=== PATIENT | female | born 1965 | race Caucasian/White ===

== ENCOUNTER 2016-10-13 19:55 | Outpatient (CLI) | payer OTHER | END 2016-10-14 06:25 | disposition home or self-care (01) | LOC: SLEEP 19:55 | PROVIDERS: ATTEND Nurse Practitioner Family | DX: G47.10 Hypersomnia, unspecified (principal); R06.83 Snoring | CPT/HCPCS: 95810 ==

== ENCOUNTER → 2016-11-20 | Outpatient (CLI) | payer OTHER ==
--- NOTE | 2016-11-23 18:02 | Diagnostic Imaging Report ---
Bilateral screening mammogram. The current study was also evaluated with a Computer Aided Detection (CAD) system. INDICATION: Screening. No current complaints stated on the questionnaire. COMPARISON: 10/18/15. FINDINGS: The breasts are composed of heterogeneously dense parenchyma which may decrease mammographic sensitivity. There is no mass, architectural distortion or suspicious cluster of calcification. Allowing for technique and positional differences, no suspicious change is seen. IMPRESSION: Dense breasts with no definite change. ACR BI-RADS Category 2: Benign findings. Result letter will be mailed to the patient. Note: At least 10% of breast cancer is not imaged by mammography. Dictated by: Dictated on workstation # [id number]
== END ==
LOC: RAD 09:15
PROVIDERS: ATTEND Nurse Practitioner
DX: Z12.31 Encounter for screening mammogram for malignant neoplasm of breast (principal); R92.2 Inconclusive mammogram
CPT/HCPCS: 77067

== ENCOUNTER → 2017-12-14 | Outpatient (CLI) | payer OTHER ==
--- NOTE | 2017-12-14 19:11 | Diagnostic Imaging Report ---
INDICATION: Routine screening. COMPARISON: Comparison is made with prior mammograms from 11/20/2016 and 10/18/2015. TECHNIQUE: 2D and 3D bilateral screening mammography was performed with computer-aided detection (CAD) system. FINDINGS: Both breasts are heterogeneously dense, limiting the sensitivity of mammography. The overall parenchymal pattern appears stable. There are benign calcifications present. No mass or malignant appearing microcalcifications are seen. The axillae are unremarkable. IMPRESSION: No mammographic features suspicious for malignancy are identified. ACR BI-RADS Category 2: Benign findings. Result letter will be mailed to the patient. Note: At least 10% of breast cancer is not imaged by mammography. Dictated by: Dictated on workstation # [id number]
== END ==
LOC: RAD 12:49
PROVIDERS: ATTEND Nurse Practitioner
DX: Z12.31 Encounter for screening mammogram for malignant neoplasm of breast (principal)
CPT/HCPCS: 77067

== ENCOUNTER → 2019-01-24 | Outpatient (CLI) | payer OTHER ==
--- NOTE | 2019-01-25 18:05 | Diagnostic Imaging Report ---
EXAMINATION: Digital mammogram bilateral screening. INDICATION: Screening. The current study was also evaluated with a Computer Aided Detection (CAD) system. 3-D tomosynthesis was also performed and reviewed. COMPARISON: This study was compared to the prior exams of 12/14/2017, 11/20/2016, and 10/18/2015. At this time, there are no current complaints. FINDINGS: The fibroglandular tissue in both breasts is heterogeneously dense. This does limit the sensitivity of this exam. Overall, there does not appear to have been any significant change when compared to the prior study. No primary or secondary sign of malignancy is noted. 3D tomographic images fail to show any sign of malignancy. IMPRESSION: There is no radiographic evidence for malignancy. ACR BI-RADS Category 1: Negative. Result letter will be mailed to the patient. Note: At least 10% of breast cancer is not imaged by mammography. Dictated by: Dictated on workstation # [id number]
== END ==
LOC: RAD 15:36
PROVIDERS: ATTEND Obstetrics & Gynecology
DX: Z12.31 Encounter for screening mammogram for malignant neoplasm of breast (principal)
CPT/HCPCS: 77067

== ENCOUNTER → 2020-01-26 | Outpatient (CLI) | payer OTHER ==
--- NOTE | 2020-01-29 09:01 | Diagnostic Imaging Report ---
INDICATION: Routine screening. COMPARISON: 01/24/2019 and 12/14/2017. TECHNIQUE: 2D and 3D bilateral screening mammography was performed with CAD. FINDINGS: Both breasts remain heterogeneously dense, limiting the sensitivity of mammography. The parenchymal pattern is stable. No mass or malignant appearing microcalcifications are seen. The axillae are unremarkable. IMPRESSION: No mammographic features suspicious for malignancy are identified. ACR BI-RADS Category 1: Negative. Result letter will be mailed to the patient. Note: At least 10% of breast cancer is not imaged by mammography. Dictated by: Dictated on workstation # [id number]
== END ==
LOC: RAD 15:27
PROVIDERS: ATTEND Obstetrics & Gynecology
DX: Z12.31 Encounter for screening mammogram for malignant neoplasm of breast (principal)
CPT/HCPCS: 77063; 77067

== ENCOUNTER → 2021-07-15 | Outpatient (CLI) | payer OTHER ==
--- NOTE | 2021-07-15 16:26 | Diagnostic Imaging Report ---
INDICATION: Routine screening. COMPARISON: 01/26/2020 and 01/24/2019. TECHNIQUE: 2D and 3D bilateral screening mammography was performed with CAD. FINDINGS: Both breasts are heterogeneously dense, limiting the sensitivity of mammography. The parenchymal pattern is stable. No mass or malignant-appearing microcalcifications are seen. The axillae are unremarkable. IMPRESSION: No mammographic features suspicious for malignancy are identified. ACR BI-RADS Category 1: Negative. Result letter will be mailed to the patient. Note: At least 10% of breast cancer is not imaged by mammography. Dictated by: Dictated on workstation # [id number]
== END ==
LOC: RAD 15:45
PROVIDERS: ATTEND Nurse Practitioner Family
DX: Z12.31 Encounter for screening mammogram for malignant neoplasm of breast (principal)
CPT/HCPCS: 77063; 77067

== ENCOUNTER 2021-08-01 05:31 | Outpatient (RCR) | payer OTHER ==
[~2021-08-01] VITALS: Ht 162.6 cm; Wt 84.8 kg
[~2021-08-01 05:31] MED LIST: ATOR20TA66 PO; CELE-63 PO; CETI10TA17 PO; DULO30CA49 PO; DULO60CA59 PO; EZET10TA49 PO; FERR325T24 PO; LACT1CAP57 PO; VALA500T4 PO
[2021-08-05] MEDS ORDERED: PANT40TA2 PO (09:18)
== END 2021-08-04 11:00 | disposition home or self-care (01) ==
LOC: PREOP 05:31
PROVIDERS: ATTEND Surgery
DX: Z01.812 Encounter for preprocedural laboratory examination (principal); Z12.11 Encounter for screening for malignant neoplasm of colon; K21.9 Gastro-esophageal reflux disease without esophagitis; Z20.822 Contact with and (suspected) exposure to COVID-19
CPT/HCPCS: 87635

== ENCOUNTER 2021-08-05 06:49 | Day surgery (SDC) | payer OTHER ==
[~2021-08-05] VITALS: Ht 163 cm; Wt 85.0 kg
[2021-08-05] MEDS ORDERED: LACTATED RINGERS 1,000 ML IV STA (07:04)
[2021-08-05] MEDS ORDERED: LACTATED RINGERS 1,000 ML IV ONE (07:10)
[2021-08-05] MEDS ORDERED: PROPOFOL INJECTION 50 ML IV ONE ×2 (07:15→08:50)
[2021-08-05] MEDS ORDERED: MIDAZOLAM 2 MG/2 ML (VERSED) VIAL ONE (07:15)
[2021-08-05 07:25] VITALS: BP 117/74
--- NOTE | 2021-08-05 08:01 | Progress Note-Pre Operative ---
Pre-Operative Progress Note H&P Reviewed The H&P was reviewed, patient examined and no changes noted. Date Seen by Provider: Aug 05, 2021 Time Seen by Provider: 08:00 Date H&P Reviewed: Aug 05, 2021 Time H&P Reviewed: 08:00 Pre-Operative Diagnosis: screening colonoscopy, altered bowel function, gerd DARRYL HER DO Aug 05, 2021 08:00
[2021-08-05] MEDS ORDERED: PANT40TA2 PO (09:18)
--- NOTE | 2021-08-05 09:19 | Discharge Inst-Simple/Standard ---
Discharge Inst-Standard Discharge Medications New, Converted or Re-Newed RX: Transmitted to Pharmacy Patient Instructions/Follow Up Plan of Care/Instructions/FU: 2 weeks Stephanie Activity as Tolerated: Yes Discharge Diet: Regular Diet DARRYL HER DO Aug 05, 2021 09:19
[2021-08-05 09:20] VITALS: BP 75/45
--- NOTE | 2021-08-05 09:21 | Progress Note-Post Operative ---
Post-Operative Progess Note Surgeon (s)/Traffic Checker (s) Surgeon DARRYL HER DO Traffic Checker: na Pre-Operative Diagnosis screening colonoscopy, altered bowel function, gerd Post-Operative Diagnosis hiatal hernia, reflux esophagitis, sigmoid polyp, mucosal change rectum, internal hemorrhoids Procedure & Operative Findings Date of Procedure 08/05/21 Procedure Performed/Findings egd c biopsies, colonoscopy c hot bx polypectomy and cold biopsies rectum Anesthesia Type per customer leader Estimated Blood Loss Estimated blood loss (mL): none Specimens/Packing Specimens Removed antrum, ge, sigmoid polyp, rectum DARRYL HER DO Aug 05, 2021 09:21
[2021-08-05 09:25] VITALS: BP 72/43
[2021-08-05 09:30] VITALS: BP 78/59
[2021-08-05 09:35] VITALS: BP 82/46
[2021-08-05 10:02] VITALS: BP 97/62
--- NOTE | 2021-08-05 13:56 | Anesthesia-General Post-Op ---
MAC Patient Condition Mental Status/LOC: Same as Preop Cardiovascular: Satisfactory Nausea/Vomiting: Absent Respiratory: Satisfactory Pain: Controlled Complications: Absent Post Op Complications Complications None Follow Up Care/Instructions Patient Instructions None needed. Anesthesiology Discharge Order Discharge Order Patient is doing well, no complaints, stable vital signs, no apparent adverse anesthesia problems. No complications reported per nursing. CHRISTIANO CONTEH CRNA Aug 05, 2021 13:56
--- NOTE | 2021-08-05 15:10 | OPERATIVE REPORT ---
DATE OF SERVICE: 08/05/2021 PREOPERATIVE DIAGNOSES: Screening colonoscopy, altered bowel dysfunction, GERD. POSTOPERATIVE DIAGNOSES: Hiatal hernia, reflux esophagitis, sigmoid polyp and mucosal change in rectum, internal hemorrhoids. PROCEDURE: EGD with biopsies, colonoscopy with hot biopsy polypectomy of sigmoid colon and cold biopsies of rectum. SURGEON: Darryl Brown DO ANESTHESIA: Per MACHINERY REPAIR MAINTENANCE SUPERVISOR. ESTIMATED BLOOD LOSS: None. COMPLICATIONS: None. INDICATIONS: The patient is a 56-year-old female with need for screening colonoscopy and has GERD symptoms. She will have occasional altered bowel function. She understands risks and benefits of procedure and wishes to proceed. Consent was signed in the chart. DESCRIPTION OF PROCEDURE: The patient was taken to the endoscopy suite, placed in left lateral recumbent position. Timeout was performed. Scope was inserted in mouth, down the esophagus, stomach and duodenum without difficulty. No polyps, masses or ulcerations in the duodenum. Scope was slowly retracted back to stomach where it was further insufflated. The antrum had normal appearance. Biopsy of the antrum was obtained. Scope was slowly retracted back and retroflexed, some benign appearing polyps were present. A small hiatal hernia was present. Scope was returned to its normal position, slowly withdrawn to distal esophagus with changes of reflux esophagitis. Biopsy of the GE junction was obtained. Scope was slowly retracted back until completely removed. Digital rectal exam was performed. There were no palpable polyps, masses or ulcerations. Some internal hemorrhoids. Scope was inserted in the rectum and advanced all the way to cecum with minimal difficulty. Some debris in the cecum. Lots of irrigation and suction was used. The majority of the cecum was able to be visualized. No pathology within the cecum, ascending, transverse and descending colon. In sigmoid colon, a small polyp was present, which hot biopsy polypectomy was performed. Scope was then continuously retracted back until the rectum where there was slight mucosal change, which cold biopsies were obtained. Scope was retroflexed noting the hemorrhoids. No other pathology. Scope was returned to its normal position, slowly withdrawn until completely removed. The patient tolerated procedure well without any complications, taken to recovery room in stable condition. RECOMMENDATIONS: The patient will need repeat colonoscopy in 5 years. Any issues before that be seen at that time to reevaluate having it performed again. The patient with some reflux esophagitis, hiatal hernia. We will start her on Protonix 40 mg daily and then converted to Pepcid in approximately 2 to 3 months and see how her symptoms do and also await biopsy results. Job ID: [id number] DocumentID: [id number] Dictated Date: 08/05/2021 09:23:55 Charge Master Specialist Date: 08/05/2021 15:10:01 Dictated By: DARRYL BROWN DO
== END 2021-08-05 10:03 | disposition home or self-care (01) ==
LOC: ENDO 06:49
PROVIDERS: ATTEND Surgery
DX: D12.5 Benign neoplasm of sigmoid colon (principal); K62.1 Rectal polyp; K21.00 Gastro-esophageal reflux disease with esophagitis, without bleeding; R19.4 Change in bowel habit; K31.89 Other diseases of stomach and duodenum; K44.9 Diaphragmatic hernia without obstruction or gangrene; K64.8 Other hemorrhoids; E78.5 Hyperlipidemia, unspecified; E78.00 Pure hypercholesterolemia, unspecified; E66.9 Obesity, unspecified; F41.9 Anxiety disorder, unspecified; F32.A Depression, unspecified; F17.210 Nicotine dependence, cigarettes, uncomplicated; Z68.32 Body mass index [BMI] 32.0-32.9, adult; Z79.899 Other long term (current) drug therapy; Z83.3 Family history of diabetes mellitus; Z80.3 Family history of malignant neoplasm of breast
CPT/HCPCS: 88305